=== PATIENT | male | born 1990 | race African-American/Black ===

== ENCOUNTER 2024-03-26 14:36 | Emergency (ER) | payer SELFPAY ==
[~2024-03-26] VITALS: Ht 170.2 cm; Wt 98.0 kg
[2024-03-26 14:43] VITALS: O2SAT 100
[2024-03-26 16:42] LABS: BASOPHILS % 0.1 % (0.0-2.0); HEMATOCRIT. 41.5 % (42.0-52.0); HEMOGLOBIN. 13.5 g/dL (14.0-18.0); LYMPHOCYTES % 7.6 % (20.0-50.0); MEAN CORPUSCULAR HEMOGLOBIN 28.1 pg (28.0-32.0); MEAN CORPUSCULAR HGB CONC 32.5 g/dL (31.0-37.0); MEAN CORPUSCULAR VOLUME 86.6 fL (80.0-94.0); MEAN PLATELET VOLUME 8.4 fl (7.4-10.4); MONOCYTES % 4.3 % (2.0-8.0); PLATELET 238 x1000/uL (130-400); RED CELL DISTRIBUTION WIDTH 14.7 % (11.6-14.6); WHITE BLOOD COUNT 12.3 x1000/uL (4.5-11.0)
[2024-03-26 16:47] LABS: CHLORIDE 106 mEq/L (98-107); POTASSIUM 4.2 mEq/L (3.5-5.1); SODIUM 136 mEq/L (136-145)
[2024-03-26 16:48] LABS: CALCIUM 9.7 mg/dL (8.7-10.4); CARBON DIOXIDE 24 mEq/L (21-32)
[2024-03-26 16:53] LABS: CREATININE 1.4 mg/dL (0.6-1.3); GLUCOSE 120 mg/dL (70-105); UREA NITROGEN BLOOD 12 mg/dL (9-23)
[2024-03-26] MEDS ORDERED: ONDANSETRON HCL 4MG/2ML INJ IV ONE (17:00)
[2024-03-26] MEDS ORDERED: KETOROLAC 30MG/ML VIAL IV ONE (17:00)
[2024-03-26] MEDS: SODIUM CHLORIDE 0.9% 1,000 ML IV ONE (17:15)
[2024-03-26] MEDS: ONDANSETRON HCL 4MG/2ML INJ IV NR (19:00)
[2024-03-26] MEDS: KETOROLAC 30MG/ML VIAL IV NR (19:00)
[2024-03-26] MEDS ORDERED: TAMS-11 MT (19:33)
[2024-03-26] MEDS ORDERED: IBUP-1525 MT (19:33)
[2024-03-26 20:00] VITALS: BP 149/85; PULSE 67; RESP 17; TEMP 36.83628; O2SAT 100
== END 2024-03-26 20:01 | disposition home or self-care (01) ==
LOC: ER 14:36
DX: N23 Unspecified renal colic (principal); R11.2 Nausea with vomiting, unspecified
CPT/HCPCS: 80048; 83690; 85025; 36415; 74176; 96361; 96374; 96375; 99285; J1885; J2405; J7030; Z7610 ×2